=== PATIENT | female | born 1945 | race American Indian/Alaskan Native ===

== ENCOUNTER 2020-04-12 11:31 | Emergency (ER) | payer MEDICARE ==
[2020-04-12] MEDS ORDERED: EPINEPHrine 1 MG/1 ML 8 MG in SODIUM CHLORIDE 0.9% 250ML 242 ML IV ONE (12:00)
--- NOTE | 2020-04-12 12:17 | Emergency Department Report ---
ED CPR HPI - General Chief Complaint: Cardiac Arrest/CPR Stated Complaint: CARDIAC ARREST Source: EMS Mode of arrival: Stretcher - History of Present Illness Initial Comments: Patient is a 74-year-old female with past medical history significant for cancer, recent pericardial or pleural effusion that was drained who presents to the emergency department in cardiac arrest. Patient apparently had a witnessed arrest at home. When EMS arrived patient was in asystole. Patient had brief ROSC with EMS however presents to the emergency department without a pulse with an Igel in place, being bagged. Initial rhythm was PEA. MD Complaint: stopped breathing Treatments Prior to Arrival: epinephrine mgs # ED Review of Systems ROS: Stated complaint: CARDIAC ARREST Other details as noted in HPI Comment: Unobtainable due to pts medical conditions ED Physical Exam - General General appearance: obtunded - Eye Eye exam: Present: other Pupils: Present: other (Pupils are fixed and dilated) - Neck Neck exam: Present: other (Prominent EJ) - Respiratory Respiratory exam: Present: other (No breath sounds. When patient is being bagged there are bilateral breath sounds with the Igel in place.) - GI/Abdominal GI/Abdominal exam: Present: distended - Rectal Rectal exam: Present: deferred - Extremities Exam Extremities exam: Present: other (I/O was in place on the left however upon transfer to the hospital bed was removed) - Neurological Exam Neurological exam: Present: other (Pupils fixed. No gag.) - Skin Skin exam: Present: dry, intact - Intubation Time Out Performed: No (emergent) Sedative: none Laryngoscope: other (Glidescope) Size: 3 ET Tube Size: 7.5 Tube Secured Depth (cm): 22 Tube Secured Location: lips Tube Placement Confirmation: visualized tube passing t, equal breath sounds bilat Patient Tolerated Procedure: no complications Intubation Complications: none ED Medical Decision Making - Medical Decision Making Patient is a 74-year-old female with past medical history of cancer who is currently receiving chemotherapy who presented to the emergency department in cardiac arrest. Per EMS patient had a respiratory arrest prior to their arrival and when they arrived the patient was in cardiac arrest. We followed ACLS protocol. Patient received IV epinephrine, calcium, bicarb. Patient remained in PEA arrest. Patient did briefly obtain ROSC however she irineo-ed down into PEA arrest once again. Bedside ultrasound revealed no large drainable pericardial effusion, nor tamponade physiology although she did have a trace amount of pericardial fluid. She was intubated with resultant good bilateral breath sounds although she did not require meds nor did she have a gag reflex. Despite our therapies we were ultimately unable to achieve ROSC, pupils remained fixed and dilated. Time of was called at 1207. Critical care attestation.: If time is entered above; I have spent that time in minutes in the direct care o f this critically ill patient, excluding procedure time. ED Disposition Clinical Impression: Cardiac arrest Disposition: DC-20 Is pt being admited?: No Does the pt Need Aspirin: No Time of Disposition: 12:07
== END 2020-04-12 12:30 ==
LOC: ED 11:31
DX: I46.9 Cardiac arrest, cause unspecified (principal)
CPT/HCPCS: 31500; 82962; 92950; 93005; J0171; J7050